=== PATIENT | male | born 1955 | race African-American/Black ===

== ENCOUNTER 2018-05-20 21:20 | Emergency (ER) | payer OTHER ==
[2018-05-20 22:35] VITALS: BP 115/73; PULSE 89; TEMP 97.9; BMI 26.5
--- NOTE | 2018-05-21 00:47 | PDOC ---
History of Present Illness - General Chief Complaint: Foreign Body (FB) Stated Complaint: BONE STUCK IN THROAT Time Seen by Provider: 05/20/18 23:24 History Source: Patient Exam Limitations: No Limitations Past History - Past Medical History Allergies/Adverse Reactions: Allergies Allergy/AdvReac Type Severity Reaction Status Date / Time No Known Allergies Allergy Verified 11/29/11 06:51 Home Medications: Ambulatory Orders Aspirin Coated [Ecotrin -] 81 mg PO DAILY #0 tablet.ec 11/29/11 Ibuprofen [Motrin -] 400 mg PO TID #0 tablet 11/29/11 Metoprolol Succinate [Toprol XL -] 25 mg PO DAILY #0 tab.sr.24h 11/29/11 Simvastatin [Zocor] 20 mg PO HS #0 tablet 11/29/11 Cardiac Disorders: No COPD: No CHF: No DVT: No HTN: No Hypercholesterolemia: No - Family Disease History Family Disease History: Heart Disease: Father (stent in 80's) - Suicide/Smoking/Psychosocial Hx Smoking Status: No Smoking History: Never smoked Have you smoked in the past 12 months: No Number of Cigarettes Smoked Daily: 0 Information on smoking cessation initiated: No Hx Alcohol Use: No Drug/Substance Use Hx: No Hx Substance Use Treatment: No *Physical Exam - Vital Signs Last Vital Signs Temp Pulse Resp BP Pulse Ox 97.9 F 89 20 115/73 99 05/20/18 22:33 05/20/18 22:33 05/20/18 22:33 05/20/18 22:33 05/20/18 22:33 - Physical Exam General Appearance: No: Apparent Distress HEENT: positive: Normal ENT Inspection, Pharynx Normal, Other (No FB noted in throat) Respiratory/Chest: positive: Lungs Clear, Normal Breath Sounds. negative: Respiratory Distress Cardiovascular: positive: Regular Rhythm, Regular Rate, S1, S2. negative: Murmur Gastrointestinal/Abdominal: positive: Normal Bowel Sounds, Soft. negative: Tender, Distended, Guarding, Rebound Neurologic: positive: Fully Oriented, Alert, Normal Mood/Affect Moderate Sedation - Procedure Monitoring Vital Signs: Procedure Monitoring Vital Signs Temperature 97.9 F 05/20/18 22:33 Pulse Rate 89 05/20/18 22:33 Respiratory Rate 20 05/20/18 22:33 Blood Pressure 115/73 05/20/18 22:33 O2 Sat by Pulse Oximetry (%) 99 05/20/18 22:33 ED Treatment Course - RADIOLOGY Radiology Studies Ordered: Category Date Time Status SOFT TISSUE NECK CT W/O CONTR [CT] Stat CT Scan 05/21/18 00:11 Ordered Medical Decision Making - Medical Decision Making 62 y/o M with no sig pmh presents with feeling fish bone stuck in throat after eating fish around 830 PM today. Denies fever, sob, cp, abd pain, n/v Will send for CT neck to r/o FB 05/21/18 00:45 CT neck: FINDINGS: Intraorbital and visualized intracranial contents are normal. Upper esophagus is normal. Trachea is normal. There are no radiopaque foreign bodies. No parapharyngeal or retropharyngeal space edema. Lung apices are clear. No mass or abnormal adenopathy. Thyroid gland salivary glands are normal. IMPRESSION: No radiopaque foreign bodies. No FB noted in throat Patient able to swallow water; appears well Stable for d/c 05/21/18 01:14 *DC/Admit/Observation/Transfer Diagnosis at time of Disposition: Foreign body sensation in throat - Discharge Dispostion Disposition: HOME Condition at time of disposition: Good - Referrals Referrals: Frandy Blue [Primary Care Provider] - 3 days - Patient Instructions Additional Instructions: Thank you for choosing [facility]. It was a pleasure taking care of you. No foreign body was noted in your throat. If symptoms of sensation persist, consider follow-up with ENT doctor. Also follow-up with your PCP in 2-3 days. Return to the Emergency Department if your symptoms worsen or persist, you have shortness of breath, chest pain, severe abdominal pain, vomiting or other concerning symptoms. - Post Discharge Activity
== END 2018-05-21 02:16 | disposition home or self-care (01) ==
LOC: JER 21:20
DX: R09.89 Other specified symptoms and signs involving the circulatory and respiratory systems (principal)
CPT/HCPCS: 70490-TC; 99281-25